=== PATIENT | male | born 1990 | race Caucasian/White ===

== ENCOUNTER 2023-03-19 21:04 | Inpatient (IN) | payer MEDICAID, OTHER ==
[~2023-03-19] VITALS: Ht 188 cm; Wt 60.2 kg
[2023-03-19 23:51] LABS: COVID AG,FIA SOURCE NASOPHARYNGEAL
[2023-03-19 23:54] LABS: BASOPHILS % (AUTO) 1.9 % (0.0-2.0); EOSINOPHILS % (AUTO) 0.6 % (1.0-6.0); HEMATOCRIT 39.4 % (41-53); HEMOGLOBIN 13.3 g/dL (13.5-17.5); LYMPHOCYTES # (AUTO) 2.3 K/uL (1.0-4.8); LYMPHOCYTES % (AUTO) 31.3 % (22.0-44.0); MEAN CORPUSCULAR HEMOGLOBIN 32.1 pg (26.0-34.0); MEAN CORPUSCULAR HGB CONC 33.7 G/dL (31.0-37.0); MEAN CORPUSCULAR VOLUME 95 fL (80-100); NEUTROPHILS # (AUTO) 3.9 K/uL (1.8-7.7); NEUTROPHILS % (AUTO) 53.2 % (40.0-70.0); PLATELET COUNT (AUTO) 170 K/uL (150-450); RED BLOOD CELL COUNT(AUTO) 4.14 MIL/uL (4.50-5.90); RED CELL DISTRIBUTION WIDTH 12.8 % (11.5-14.5)
[2023-03-20 00:04] LABS: ANION GAP 8 mmol/L (8-16); CALCIUM, TOTAL 9.3 mg/dL (8.8-10.5); CARBON DIOXIDE 29 mmol/L (22-29); CHLORIDE 101 mmol/L (98-107); CREATININE 0.83 mg/dL (0.60-1.30); GLOMERULAR FILTR. RATE CALC > 60 mL/min (>60); GLUCOSE,RANDOM 91 mg/dL (70-110); POTASSIUM 4.6 mmol/L (3.5-5.1); SODIUM SERUM 138 mmol/L (136-145)
[2023-03-20 00:09] LABS: ALANINE AMINOTRANSFERASE 23 U/L (12-78); ALBUMIN 4.2 g/dL (3.4-5.0); ALKALINE PHOSPHATASE 62 U/L (46-116); ASPARTATE AMINOTRANSFERASE 48 U/L (15-37); BILIRUBIN,TOTAL 0.7 mg/dL (0.1-1.0); TOTAL PROTEIN, SERUM 7.5 g/dL (6.4-8.2)
[2023-03-20] MEDS ORDERED: ACETAMINOPHEN 325 MG TABLET PO PRN ×2 (01:15→09:00)
[2023-03-20 04:15] VITALS: BP 127/87
[2023-03-20] MEDS ORDERED: HALOPERIDOL 5 MG TABLET PO PRN (04:45)
[2023-03-20 08:31] LABS: APPEARANCE,URINE CLEAR (CLEAR); BILIRUBIN,URINE NEGATIVE (NEGATIVE); GLUCOSE, URINE (UA) NEGATIVE (NEGATIVE); KETONES,URINE NEGATIVE (NEGATIVE); LEUKOCYTE ESTERASE ,URINE NEGATIVE (NEGATIVE); NITRATE,URINE NEGATIVE (NEGATIVE); OCCULT BLOOD,URINE NEGATIVE (NEGATIVE); PROTEIN,URINE TRACE mg/dL (NEGATIVE); SPECIFIC GRAVITIY, URINE 1.024 (1.003-1.030); UROBILINOGEN,URINE <=1.0 mg/dL (<=1.0)
[2023-03-20 08:36] VITALS: BP 147/92
[2023-03-20 08:53] LABS: AMPHET/METH SCREEN,URINE NEGATIVE (NEGATIVE); BARBITURATE SCREEN, URINE NEGATIVE (NEGATIVE); BENZODIAZEPINES SCREEN,URINE NEGATIVE (NEGATIVE); CANNABINOID SCREEN,URINE POSITIVE (NEGATIVE); COCAINE SCREEN,URINE NEGATIVE (NEGATIVE); METHADONE SCREEN, URINE NEGATIVE (NEGATIVE); OPIATE SCREEN,URINE NEGATIVE (NEGATIVE); PHENCYCLIDINE SCREEN,URINE NEGATIVE (NEGATIVE)
[2023-03-20] MEDS ORDERED: MAG HYDROX/AL HYDROX/SIMETH ES 30 ML SUSPENSION UDCUP PO PRN (09:00)
[2023-03-20] MEDS ORDERED: HydrOXYzine PAMOATE 50 MG CAPSULE PO PRN (09:00)
[2023-03-20] MEDS ORDERED: PROMETHAZINE HCL 25 MG TABLET PO PRN (09:00)
[2023-03-20] MEDS ORDERED: OLANZapine 5 MG RAPDIS TABLET PO PRN (09:00)
[2023-03-20] MEDS ORDERED: TUBERCULIN, PURIFIED PROTEIN DERIVATIVE 5 TU/0.1 ML SYRINGE ID ONE (09:00)
[2023-03-20] MEDS ORDERED: LOPERAMIDE HCL 2 MG CAPSULE PO PRN (09:00)
[2023-03-20] MEDS ORDERED: MAGNESIUM HYDROXIDE SUSPENSION 30 ML UDCUP PO PRN (09:00)
[2023-03-20] MEDS ORDERED: GuaiFENesin/D-METHORPHAN [SUGAR-FREE] 200-20MG/10 ML SYRUP UDCUP PO PRN (09:00)
[2023-03-20] MEDS: OMEGA-3/DHA/EPA/FISH OIL 1,000 MG CAPSULE PO SCH (09:23)
[2023-03-20] MEDS: FOLIC ACID 1 MG TABLET PO SCH (09:23)
[2023-03-20] MEDS: MULTIVITAMINS WITH MINERALS, THERAPEUTIC TABLET PO SCH (09:23)
[2023-03-20] MEDS: THIAMINE 100 MG TABLET PO SCH ×2 (09:24→16:49)
[2023-03-20] MEDS: NALTREXONE HCL 50 MG TABLET PO SCH (09:28)
[2023-03-20] MEDS: LORazepam 2 MG TABLET PO PRN (16:11)
[2023-03-20] MEDS: MELATONIN 5 MG TABLET PO SCH (20:39)
[2023-03-20] MEDS ORDERED: OLANZapine 5 MG RAPDIS TABLET PO SCH (21:00)
[2023-03-21 07:10] LABS: HEMOGLOBIN A1C 4.6 % (3.8-5.6)
[2023-03-21 07:48] LABS: CHOL/HDL RATIO 1.8 (4.2-7.3); FREE T4 (FREE THYROXINE) 1.07 ng/dL (0.76-1.46); THYROID STIMULATING HORMONE 0.37 uIU/mL (0.36-3.74)
[2023-03-21] MEDS: OMEGA-3/DHA/EPA/FISH OIL 1,000 MG CAPSULE PO SCH (08:20)
[2023-03-21] MEDS: FOLIC ACID 1 MG TABLET PO SCH (08:20)
[2023-03-21] MEDS: NALTREXONE HCL 50 MG TABLET PO SCH (08:20)
[2023-03-21] MEDS: MULTIVITAMINS WITH MINERALS, THERAPEUTIC TABLET PO SCH (08:20)
[2023-03-21] MEDS: THIAMINE 100 MG TABLET PO SCH ×2 (08:20→16:16)
[2023-03-21 08:22] VITALS: BP 104/69
[2023-03-21 20:30] VITALS: BP 110/68
[2023-03-21] MEDS: OLANZapine 10 MG RAPDIS TABLET PO SCH (21:03)
[2023-03-21] MEDS: MELATONIN 5 MG TABLET PO SCH (21:03)
[2023-03-21] MEDS: ZOLPIDEM TARTRATE 10 MG TABLET PO PRN (21:45)
[2023-03-22] MEDS: FOLIC ACID 1 MG TABLET PO SCH (08:01)
[2023-03-22] MEDS: THIAMINE 100 MG TABLET PO SCH ×2 (08:01→16:23)
[2023-03-22] MEDS: OMEGA-3/DHA/EPA/FISH OIL 1,000 MG CAPSULE PO SCH (08:01)
[2023-03-22] MEDS: NALTREXONE HCL 50 MG TABLET PO SCH (08:01)
[2023-03-22] MEDS: MULTIVITAMINS WITH MINERALS, THERAPEUTIC TABLET PO SCH (08:01)
[2023-03-22] MEDS: LORazepam 2 MG TABLET PO PRN (08:04)
[2023-03-22 08:39] VITALS: BP 128/85
[2023-03-22] MEDS: MELATONIN 5 MG TABLET PO SCH (21:00)
[2023-03-22] MEDS: OLANZapine 10 MG RAPDIS TABLET PO SCH (21:01)
[2023-03-22] MEDS: DIVALPROEX SODIUM 500 MG ER TABLET PO SCH (21:01)
[2023-03-22] MEDS: ZOLPIDEM TARTRATE 10 MG TABLET PO PRN (21:35)
[2023-03-22 21:37] VITALS: BP 131/86
[2023-03-23] MEDS: NALTREXONE HCL 50 MG TABLET PO SCH (08:00)
[2023-03-23] MEDS: OMEGA-3/DHA/EPA/FISH OIL 1,000 MG CAPSULE PO SCH (08:01)
[2023-03-23] MEDS: THIAMINE 100 MG TABLET PO SCH ×2 (08:02→16:25)
[2023-03-23] MEDS: FOLIC ACID 1 MG TABLET PO SCH (08:02)
[2023-03-23] MEDS: MULTIVITAMINS WITH MINERALS, THERAPEUTIC TABLET PO SCH (08:02)
[2023-03-23 09:09] VITALS: BP 133/87
[2023-03-23] MEDS: LORazepam 2 MG TABLET PO PRN (12:32)
[2023-03-23] MEDS: OLANZapine 10 MG RAPDIS TABLET PO SCH (20:00)
[2023-03-23] MEDS: MELATONIN 5 MG TABLET PO SCH (20:00)
[2023-03-23] MEDS: DIVALPROEX SODIUM 500 MG ER TABLET PO SCH (20:00)
[2023-03-23 20:16] VITALS: BP 116/76
[2023-03-23] MEDS: ZOLPIDEM TARTRATE 10 MG TABLET PO PRN (20:29)
[2023-03-24 08:00] VITALS: BP 111/75
[2023-03-24] MEDS: THIAMINE 100 MG TABLET PO SCH (08:39)
[2023-03-24] MEDS: NALTREXONE HCL 50 MG TABLET PO SCH (08:39)
[2023-03-24] MEDS: MULTIVITAMINS WITH MINERALS, THERAPEUTIC TABLET PO SCH (08:40)
[2023-03-24] MEDS: FOLIC ACID 1 MG TABLET PO SCH (08:40)
[2023-03-24] MEDS: OMEGA-3/DHA/EPA/FISH OIL 1,000 MG CAPSULE PO SCH (08:40)
== END 2023-03-24 14:15 | disposition left against medical advice (07) | DRG 750 ==
LOC: EMS 21:05 → 3EC 03-20 02:30 → 3EI 03-23 16:22
PROVIDERS: ADMIT Psychiatry & Neurology Psychiatry; ATTEND Psychiatry & Neurology Psychiatry
DX: F25.9 Schizoaffective disorder, unspecified (principal); G93.41 Metabolic encephalopathy; R45.851 Suicidal ideations; R45.850 Homicidal ideations; F17.210 Nicotine dependence, cigarettes, uncomplicated; Z53.21 Procedure and treatment not carried out due to patient leaving prior to being seen by health care provider; Z20.822 Contact with and (suspected) exposure to COVID-19; F31.9 Bipolar disorder, unspecified; D64.9 Anemia, unspecified; J44.9 Chronic obstructive pulmonary disease, unspecified; F19.90 Other psychoactive substance use, unspecified, uncomplicated; Z91.030 Bee allergy status; Z59.00 Homelessness unspecified
CPT/HCPCS: 80053; 80061; 80164; 80307; 81003; 83036; 84439; 84443; 85025; 86592; 99285; G0480; Q9967